=== PATIENT | female | born 1955 | race Two or more races ===

== ENCOUNTER 2016-09-28 15:19 | Emergency (ER) | payer SELFPAY ==
[~2016-09-28] VITALS: Ht 149.9 cm; Wt 81.6 kg
[2016-09-28] MEDS ORDERED: Acetaminophen 650mg/20.3ml NG ONE (15:45)
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
[2016-09-28 16:04] VITALS: BP 122/79
[2016-09-28] MEDS ORDERED: BACITRACIN-P28.35 GM TP (16:41)
[2016-09-28] MEDS ORDERED: TYLENOL EXTRA500 MG ORAL (16:41)
[2016-09-28 17:03] VITALS: BP 122/79
--- NOTE | 2016-09-30 09:05 | Diagnostic Imaging Report ---
Indication: Pain 3 views of the left knee were obtained. Findings: There is moderate joint space narrowing with marginal osteophyte formation and subchondral sclerosis. Osteopenia noted. No fracture seen. Impression: Osteoarthritis
--- NOTE | 2016-09-30 09:05 | Diagnostic Imaging Report ---
Indication: Dyspnea Comparison: None A single view chest radiograph was obtained. Findings: No definite infiltrate or pulmonary vascular congestion identified. The heart is enlarged. The aorta is mildly enlarged consistent with atherosclerotic vascular disease. The bones are osteopenic. Impression: No acute disease
== END 2016-09-28 17:09 | disposition home or self-care (01) ==
LOC: EDBD 15:19 → EMR 15:55
DX: S80.02XA Contusion of left knee, initial encounter (principal); S00.531A Contusion of lip, initial encounter; S20.219A Contusion of unspecified front wall of thorax, initial encounter; V43.62XA Car passenger injured in collision with other type car in traffic accident, initial encounter; Y92.410 Unspecified street and highway as the place of occurrence of the external cause
CPT/HCPCS: 71010; 99284